=== PATIENT | male | born 1975 | race Caucasian/White ===

== ENCOUNTER 2016-10-29 02:32 | Emergency (ER) | payer SELFPAY ==
[~2016-10-29] VITALS: Ht 175.3 cm; Wt 81.6 kg
--- NOTE | 2016-10-29 02:35 | NUR ---
to bed 1 bib paramedics c/o n/v x1 day. pt admits to using heroin few hours ago. pt aaox4 no acute distress noted, resp even and unlabored. place pt on cardiac monitoring, continuous pox. pending er md rae.
--- NOTE | 2016-10-29 02:40 | NUR ---
yohannes zepeda at bedside to butch brady.
[2016-10-29] MEDS ORDERED: ONDANSETRON HCL/PF 4 MG/2 ML VIAL ONE (02:49)
[2016-10-29] MEDS ORDERED: IV NS 0.9% 1,000 ML ONE (02:50)
[2016-10-29] MEDS ORDERED: IV SET PRIMARY 1 EA INFUS.SET MC ONE (02:50)
[2016-10-29 02:57] LABS: BASOPHILS # (AUTO) 0.1 /CMM (0.0-0.2); BASOPHILS % (AUTO) 0.7 % (0.0-2.0); EOSINOPHILS % (AUTO) 0.1 % (0.0-6.0); HEMATOCRIT 36 % (39-51); HEMOGLOBIN 11.6 g/dL (13.5-17.5); LYMPHOCYTES # (AUTO) 0.9 /CMM (0.8-4.8); MEAN CORPUSCULAR HEMOGLOBIN 25 PG (26.0-33.0); MEAN CORPUSCULAR HGB CONC 32 g/dl (31.0-36.0); MEAN CORPUSCULAR VOLUME 76 fL (80-96); MONOCYTES # (AUTO) 0.6 /CMM (0.1-1.30); MONOCYTES % (AUTO) 8.1 % (2.0-12.0); NEUTROPHILS # (AUTO) 5.9 /CMM (1.8-8.9); NEUTROPHILS % (AUTO) 79.1 % (43.0-81.0); PLATELET COUNT (AUTO) 269 /CMM (150-450); RED BLOOD CELL COUNT(AUTO) 4.71 MIL/uL (4.5-6.0); WHITE BLOOD COUNT (AUTO) 7.4 K/uL (4.3-11.0)
[2016-10-29] MEDS ORDERED: ONDANSETRON HCL/PF 4 MG/2 ML VIAL IVP ONE (03:00)
[2016-10-29] MEDS ORDERED: IV NS 0.9% 1,000 ML BAG IV ONE (03:00)
--- NOTE | 2016-10-29 03:01 | NUR ---
pt asleep, no acute distress noted, resp even and unlabored. no n/v noted.
[2016-10-29 03:19] LABS: ALBUMIN 3.3 g/dL (3.4-5.0); BILIRUBIN,DIRECT 0.1 mg/dL (0.0-0.2); BILIRUBIN,TOTAL 0.4 mg/dL (0.2-1.0); CALCIUM, SERUM 8.6 mg/dL (8.5-10.1); POTASSIUM 3.7 mmol/L (3.5-5.1); TOTAL PROTEIN, SERUM 7.4 g/dL (6.4-8.2)
--- NOTE | 2016-10-29 03:36 | NUR ---
Marissa reed in ED - 10/29/16 at 0337 by WATSON Patient discharged to home in stable condition. Written and verbal after care instructions given. Patient verbalizes understanding of instruction. ambulatory with a steady gait. TEMP- 98.9
--- NOTE | 2016-10-29 04:16 | NUR ---
yohannes zepeda at bedside to re-eval pt.
--- NOTE | 2016-10-29 04:30 | NUR ---
PT ABLE TO TOLERATE PO WATER.
--- NOTE | 2016-10-29 04:42 | NUR ---
Patient discharged to home in stable condition. Written and verbal after care instructions given. Patient verbalizes understanding of instruction. ambulatory with a steady gait noted. pt aaox4 no acute distress noted, resp even and unlabored. no n/v noted at this time.
[2016-10-29 04:43] VITALS: BP 127/78
== END 2016-10-29 04:44 | disposition home or self-care (01) ==
LOC: ER 02:33
DX: R11.2 Nausea with vomiting, unspecified (principal); F17.200 Nicotine dependence, unspecified, uncomplicated
CPT/HCPCS: 36415; 80048-TC; 80076-TC; 83690-TC; 85025-TC; A4606; J2405; J7030; Z7610

== ENCOUNTER 2016-12-14 01:03 | Emergency (ER) | payer MEDICAID, OTHER ==
[~2016-12-14] VITALS: Ht 175.3 cm; Wt 90.7 kg
--- NOTE | 2016-12-14 01:03 | NUR ---
41 yo male bb friend. pt is alert x 0, non responsive to painful stimuli. per friend, they were doing heroin. pt is cool, diaphoretic with shallow respiration. MD Sheikh at bed side. pt gowned, placed on quality assurance monitor. spo2 in the 20%, started 18g right and admin 2 mg narcan ivp. pt woke up abruptly, spo2 now in the 90% with nc. pt seems discombobulated at this time, vss, pt rr have normalized. will monitor closely.
[2016-12-14] MEDS ORDERED: NALOXONE HCL 0.4 MG/ML AMPUL ONE (01:22)
[2016-12-14 01:29] LABS: BASOPHILS % (AUTO) 0.3 % (0.0-2.0); EOSINOPHILS # (AUTO) 0.3 /CMM (0.0-0.7); EOSINOPHILS % (AUTO) 1.7 % (0.0-6.0); HEMATOCRIT 37 % (39-51); HEMOGLOBIN 12.5 g/dL (13.5-17.5); LYMPHOCYTES # (AUTO) 6.3 /CMM (0.8-4.8); LYMPHOCYTES % (AUTO) 36.1 % (20.0-44.0); MEAN CORPUSCULAR HEMOGLOBIN 26 PG (26.0-33.0); MEAN CORPUSCULAR HGB CONC 34 g/dl (31.0-36.0); MEAN CORPUSCULAR VOLUME 78 fL (80-96); MONOCYTES # (AUTO) 1.3 /CMM (0.1-1.30); MONOCYTES % (AUTO) 7.2 % (2.0-12.0); NEUTROPHILS # (AUTO) 9.6 /CMM (1.8-8.9); NEUTROPHILS % (AUTO) 54.7 % (43.0-81.0); PLATELET COUNT (AUTO) 336 /CMM (150-450); RDW COEFFICIENT OF VARIATION 19.2 (11.5-15.0); RED BLOOD CELL COUNT(AUTO) 4.76 MIL/uL (4.5-6.0); WHITE BLOOD COUNT (AUTO) 17.5 K/uL (4.3-11.0)
[2016-12-14 01:30] LABS: APPEARANCE,URINE CLOUDY (CLEAR); BILIRUBIN,URINE NEGATIVE (NEGATIVE); BLOOD, URINE TRACE Ery/uL (NEGATIVE); COLOR,URINE YELLOW (YELLOW); KETONES,URINE NEGATIVE (NEGATIVE); LEUKOCYTE ESTERASE ,URINE NEGATIVE (NEGATIVE); NITRITE, URINE NEGATIVE (NEGATIVE); PROTEIN,URINE 1+ mg/dl (NEGATIVE); UGLUCOSE NEGATIVE (NEGATIVE); UROBILINOGEN,URINE 0.2 EU/dL (0.2)
[2016-12-14] MEDS ORDERED: NALOXONE HCL 0.4 MG/ML AMPUL IV ONE (01:30)
[2016-12-14] MEDS ORDERED: IV NS 0.9% 1,000 ML BAG IV ONE (01:30)
--- NOTE | 2016-12-14 01:30 | NUR ---
clean catch urine sample obtained and sent to lab. will conitnue to monitor
[2016-12-14 01:37] LABS: RBC,URINE 0-2 /HPF (0-2)
[2016-12-14 01:38] LABS: BACTERIA,URINE None seen /HPF (None Seen); SQUAMOUS EPITHELIAL CELL,UR Few /HPF (None Seen); URINE AMORPHOUS URATE Few /HPF (None Seen); WBC,URINE NONE SEEN /HPF (0-3)
[2016-12-14 01:39] LABS: CALCIUM, SERUM 8.5 mg/dL (8.5-10.1); CARBON DIOXIDE 28 mmol/L (21-32); CHLORIDE 104 mmol/L (98-107); CREATININE 1.1 mg/dL (0.6-1.3); GLUCOSE 176 mg/dL (74-106); POTASSIUM 3.5 mmol/L (3.5-5.1); SODIUM SERUM 142 mmol/L (136-145); UREA NITROGEN, BLOOD 17 mg/dL (7-18)
[2016-12-14 01:52] LABS: ALANINE AMINOTRANSFERASE 26 U/L (12-78); ALBUMIN 3.7 g/dL (3.4-5.0); ALCOHOL, BLOOD < 3 mg/dL (0-0); ALKALINE PHOSPHATASE 112 U/L (46-116); ASPARTATE AMINOTRANSFERASE 21 U/L (15-37); BILIRUBIN,DIRECT 0.1 mg/dL (0.0-0.2); BILIRUBIN,TOTAL 0.5 mg/dL (0.2-1.0); TOTAL PROTEIN, SERUM 7.7 g/dL (6.4-8.2)
[2016-12-14 01:53] LABS: ACETAMINOPHEN 0 ug/ml (10-30); SALICYLATE 1.2 mg/dL (2.8-20.0)
[2016-12-14] MEDS ORDERED: IV SET PRIMARY 1 EA INFUS.SET MC ONE (02:05)
[2016-12-14] MEDS ORDERED: IV NS 0.9% 1,000 ML ONE (02:06)
--- NOTE | 2016-12-14 03:20 | NUR ---
pt resting in er bed, nad noted, will continue to monitor
[2016-12-14 05:39] VITALS: BP 122/76
--- NOTE | 2016-12-14 05:40 | NUR ---
Patient discharged to home in stable condition. Written and verbal after care instructions given. Patient verbalizes understanding of instruction.IV removed. Catheter intact and site benign. Pressure and 4x4 applied to site. No bleeding noted. pt ambulatory with a steady gait VITAL SIGNS WITHIN NORMAL LIMITS.
== END 2016-12-14 05:46 | disposition home or self-care (01) ==
LOC: ER 01:04
DX: T40.1X1A Poisoning by heroin, accidental (unintentional), initial encounter (principal); F19.10 Other psychoactive substance abuse, uncomplicated; R00.0 Tachycardia, unspecified; F17.210 Nicotine dependence, cigarettes, uncomplicated; Y92.89 Other specified places as the place of occurrence of the external cause
CPT/HCPCS: 36415; 80048; 80076; 80305; 80329; 81001; 82962; 85025; 93005; 96361; 96374; 99285; A4606; G0480 ×2; J2310; J7030; Z7610; 81000-TC